=== PATIENT | female | born 1985 | race Caucasian/White ===

== ENCOUNTER 2019-04-26 10:01 | Emergency (ER) | payer OTHER ==
[~2019-04-26] VITALS: Ht 162.6 cm; Wt 57.6 kg
[2019-04-26 10:45] LABS: Basophils # (auto) 0 uL; Basophils % (auto) 0.9 % (0.0-2.0); Eosinophils # (auto) 0.1 uL; Eosinophils % (auto) 1.9 % (0.0-7.0); Hematocrit 42.3 % (36.0-46.0); Hemoglobin 14.3 g/dL (12.2-16.2); Lymphocytes # (auto) 2.4 uL; Lymphocytes % (auto) 46.1 % (10.0-50.0); Mean Corpuscular Hemoglobin 30.2 pg (28.0-32.0); Mean Corpuscular Hgb Conc. 33.9 g/dL (32.0-36.0); Monocytes # (auto) 0.5 uL; Monocytes % (auto) 9.3 % (0.0-12.0); Neutrophils # (auto) 2.2 uL; Neutrophils % (auto) 41.8 % (37.0-80.0); Nucleated Red Blood Cells % 0.1 %; Platelet Count (auto) 247 10^3/uL (140-450); Red Blood Cells 4.75 10^6/uL (4.0-5.20); White Blood Cell 5.2 10^3/uL (4.4-10.8)
[2019-04-26 12:45] VITALS: BP 132/76
== END 2019-04-26 13:23 | disposition home or self-care (01) ==
LOC: ER 10:01
DX: N83.209 Unspecified ovarian cyst, unspecified side (principal)
CPT/HCPCS: 36415; 74176; 85025